=== PATIENT | male | born 1960 | race American Indian/Alaskan Native ===

== ENCOUNTER 2023-11-19 06:04 | Day surgery (SDC) | payer MEDICARE, MEDICAID ==
[2023-11-18 10:52] LABS: ALBUMIN 3.7 G/DL (3.4-5.0); ANION GAP 10 (8-16); BASOPHILS % (AUTO) 0.5 % (0-1); BLOOD UREA NITROGEN 13 MG/DL (7-18); BUN/CREATININE RATIO 12.9 (10.0-20.0); CALCIUM 8.9 MG/DL (8.5-10.1); CHLORIDE 105 MMOL/L (99-107); CREATININE 1.01 MG/DL (0.60-1.10); EOSINOPHILS # (AUTO) 0.1 X10'3 (0-0.9); EOSINOPHILS % (AUTO) 1.3 % (0-6); GLUCOSE 195 MG/DL (70-104); HEMATOCRIT 45.1 % (42.0-52.0); HEMOGLOBIN 15.4 g/dl (14.0-17.9); LYMPHOCYTES % (AUTO) 21.3 % (21-51); MEAN CORPUSCULAR HEMOGLOBIN 31.2 PG (27.0-31.0); MEAN CORPUSCULAR HGB CONC 34.2 g/dL (33.0-36.5); MEAN CORPUSCULAR VOLUME 91.2 FL (78-98); MEAN PLATELET VOLUME 8.6 FL (7.4-10.4); MONOCYTES # (AUTO) 0.7 X10'3 (0-0.9); MONOCYTES % (AUTO) 7.9 % (2-12); NEUTROPHILS # (AUTO) 6.4 X10'3 (1.8-7.7); PLATELET COUNT 173 X10'3 (140-440); POTASSIUM 3.7 MMOL/L (3.5-5.1); RED BLOOD COUNT 4.94 X10'6 (4.70-6.10); RED CELL DISTRIBUTION WIDTH 13.3 % (11.5-14.5); SODIUM 141 MMOL/L (135-145); TOTAL CARBON DIOXIDE 25.7 MMOL/L (24-32); WHITE BLOOD COUNT 9.3 X10'3 (4.5-11.0); eGFR 74 ML/MIN
[2023-11-18 10:55] LABS: APTT 29 SECONDS (22-32); INR 1.1 INR; PROTHROMBIN TIME 11.4 SECONDS (9.0-12.0)
[2023-11-19] VITALS (22 sets, daily range): BP systolic 99–156; BP diastolic 67–99; PULSE 57–135; RESP 14–24; TEMP 98.1; O2SAT 92–98
[~2023-11-19] VITALS: Ht 175.3 cm; Wt 93.6 kg
[~2023-11-19 06:04] MED LIST: ATEN100T PO; BENZ-38 PO; BUPR-230 PO; DOXE75CA3 PO; IPRA3AMP31 IH; ISOS30TA84 PO; LACT10SO3 PO; LEVO150T8 PO; LOSA25TA41 PO; MORP15TA PO; MORP30CA14 PO; MULT-1085 PO; OMEP40CA21 PO; ROSU20TA2 PO; TERA1CAP4 PO
[2023-11-19] MEDS ORDERED: OMEG1CAP46 PO (06:45)
[2023-11-19] MEDS ORDERED: RIVA20TA PO (06:45)
[2023-11-19] MEDS ORDERED: ROSU10TA2 PO (06:45)
[2023-11-19] MEDS ORDERED: NITR0.4T51 SL (06:45)
[2023-11-19] MEDS ORDERED: OMEP20CA16 PO (06:45)
[2023-11-19] MEDS ORDERED: FENO48TA10 PO (06:45)
[2023-11-19] MEDS: diphenhydrAMINE 25mg capsule PO PRN (06:58)
[2023-11-19] MEDS: LORazepam 0.5 MG tablet PO PRN (06:58)
[2023-11-19] MEDS: normal saline 1,000 ML IV SCH (06:59)
[2023-11-19] MEDS ORDERED: verapamil 2.5 mg/ml inj IV ONE ×3 (07:25→08:33)
[2023-11-19] MEDS ORDERED: LIDOcaine 1% (10mg/ml) 2ml vial ONE (07:25)
[2023-11-19] MEDS ORDERED: fentaNYL/PF 50MCG/1 ML 2ML syringe ONE (07:26)
[2023-11-19] MEDS ORDERED: iohexol 350MG/ML 100ml bottle IV ONE (07:26)
[2023-11-19] MEDS ORDERED: heparin 1,000unit/ml 10ml vial 10 ML ONE ×2 (07:26→09:58)
[2023-11-19] MEDS ORDERED: iohexol 350 MG/ML 50ML vial IV ONE (07:26)
[2023-11-19] MEDS ORDERED: midazolam 1 mg/ML 2ml injection ONE (07:26)
[2023-11-19] MEDS ORDERED: nitroGLYCERIN 500mcg/5mL D5W 5 ML IV ONE (07:27)
[2023-11-19] MEDS ORDERED: metoprolol tartrate 1mg/ml inj IV ONE (08:24)
[2023-11-19] MEDS ORDERED: heparin 25,000 UNIT/250ml bag 250 ML IV ONE (08:58)
[2023-11-19] MEDS ORDERED: heparin 1,000 UNITS/NS 500ml 500 ML ONE (09:36)
[2023-11-19] MEDS ORDERED: clopidogrel 300mg tablet ONE (09:50)
[2023-11-19 10:00] LABS: ISTAT HGB ART 12.6 g/dl (14.0-17.9); ISTAT Hct ART 37 %PCV (42-52); ISTAT O2 SATURATION ARTERIAL 91 % (95-98); ISTAT SOURCE ART
[2023-11-19] MEDS ORDERED: clopidogrel 300mg tablet PO ONE (10:35)
[2023-11-19] MEDS ORDERED: normal saline 1000ml 1,000 ML IV SCH ×2 (10:35)
[2023-11-19 10:41] LABS: ISTAT HGB MIX 12.6 g/dl (14.0-17.9); ISTAT Hct MIX 37 %PCV (42-52); ISTAT O2 SATURATION MIX VENOUS 64 % (60-80); ISTAT SOURCE VEN
[2023-11-19] MEDS: amiodarone 150mg/dext, iso-os 100 ML IV ONE (13:06)
[2023-11-19] MEDS: metoprolol tartrate 1mg/ml inj IV ONE (13:06)
[2023-11-19] MEDS ORDERED: metoprolol tartrate 1mg/ml inj IV PRN (13:10)
[2023-11-19] MEDS: metoprolol succinate 25mg (24-HOUR) SR. Tablet PO SCH (13:31)
[2023-11-19] MEDS ORDERED: morphine sulfate IR 15MG tablet PO ONE (13:40)
[2023-11-19] MEDS: morphine IR (immed. release) 30mg tablet PO ONE (14:07)
[2023-11-20] MEDS ORDERED: clopidogrel 75mg tablet PO SCH (08:00)
== END 2023-11-19 17:00 | disposition home or self-care (01) ==
LOC: SSTAY O 06:04
PROVIDERS: ATTEND Internal Medicine Cardiovascular Disease
DX: T82.855A Stenosis of coronary artery stent, initial encounter (principal); R94.39 Abnormal result of other cardiovascular function study; I45.10 Unspecified right bundle-branch block; I49.3 Ventricular premature depolarization; I25.119 Atherosclerotic heart disease of native coronary artery with unspecified angina pectoris; I10 Essential (primary) hypertension; E78.5 Hyperlipidemia, unspecified; I48.0 Paroxysmal atrial fibrillation; J44.9 Chronic obstructive pulmonary disease, unspecified; G47.30 Sleep apnea, unspecified; F32.A Depression, unspecified; E66.3 Overweight; I25.2 Old myocardial infarction; Z87.891 Personal history of nicotine dependence; Z79.891 Long term (current) use of opiate analgesic; Z79.899 Other long term (current) drug therapy; Z90.49 Acquired absence of other specified parts of digestive tract; Z95.5 Presence of coronary angioplasty implant and graft; Z98.890 Other specified postprocedural states; Z68.30 Body mass index [BMI] 30.0-30.9, adult; Y71.2 Prosthetic and other implants, materials and accessory cardiovascular devices associated with adverse incidents; Y92.89 Other specified places as the place of occurrence of the external cause
CPT/HCPCS: 36415; 80048; 82803; 85014; 85025; 85347; 85610; 85730; 92920; 92921; 92978; 93005; 93460; 93571; 99152; 99153; A4615; A6258; A6402; C1725; C1751; C1753; C1769; C1894; J0282; J1644; J2001; J2250; J3010; J3490; J7030; Q0163; Q9967; Z7610; 76937

== ENCOUNTER 2023-12-11 06:32 | Day surgery (SDC) | payer MEDICARE, MEDICAID ==
[2023-12-10 09:59] LABS: BASOPHILS # (AUTO) 0.1 X10'3 (0-0.2); BASOPHILS % (AUTO) 0.8 % (0-1); EOSINOPHILS # (AUTO) 0.2 X10'3 (0-0.9); EOSINOPHILS % (AUTO) 1.6 % (0-6); HEMATOCRIT 45.9 % (42.0-52.0); HEMOGLOBIN 15.4 g/dl (14.0-17.9); LYMPHOCYTES # (AUTO) 3.2 X10'3 (1.1-4.8); MEAN CORPUSCULAR HEMOGLOBIN 30.6 PG (27.0-31.0); MEAN CORPUSCULAR HGB CONC 33.4 g/dL (33.0-36.5); MEAN CORPUSCULAR VOLUME 91.5 FL (78-98); MEAN PLATELET VOLUME 8.3 FL (7.4-10.4); MONOCYTES # (AUTO) 1.1 X10'3 (0-0.9); MONOCYTES % (AUTO) 11.1 % (2-12); NEUTROPHILS # (AUTO) 5.7 X10'3 (1.8-7.7); NEUTROPHILS % (AUTO) 55.5 % (42-75); PLATELET COUNT 212 X10'3 (140-440); RED BLOOD COUNT 5.02 X10'6 (4.70-6.10); RED CELL DISTRIBUTION WIDTH 13.1 % (11.5-14.5); WHITE BLOOD COUNT 10.2 X10'3 (4.5-11.0)
[2023-12-10 10:08] LABS: ALBUMIN 3.8 G/DL (3.4-5.0); ANION GAP 8 (8-16); BLOOD UREA NITROGEN 15 MG/DL (7-18); BUN/CREATININE RATIO 12.1 (10.0-20.0); CHLORIDE 104 MMOL/L (99-107); CREATININE 1.24 MG/DL (0.60-1.10); GLUCOSE 137 MG/DL (70-104); POTASSIUM 3.9 MMOL/L (3.5-5.1); SODIUM 139 MMOL/L (135-145); TOTAL CARBON DIOXIDE 27.3 MMOL/L (24-32); eGFR 59 ML/MIN
[2023-12-10 10:11] LABS: INR 1.5 INR; PROTHROMBIN TIME 15.7 SECONDS (9.0-12.0)
[~2023-12-11] VITALS: Ht 170.2 cm; Wt 91.2 kg
[2023-12-11] VITALS (11 sets, daily range): BP systolic 95–128; BP diastolic 58–88; PULSE 74–88; RESP 14–18; TEMP 98.9; O2SAT 92–97
[~2023-12-11 06:32] MED LIST changes: +FENO48TA10 PO; -LACT10SO3 PO; -LOSA25TA41 PO; -MORP15TA PO; +NITR0.4T51 SL; +OMEG1CAP46 PO; +OMEP20CA16 PO; -OMEP40CA21 PO; +RIVA20TA PO; +ROSU10TA2 PO; -ROSU20TA2 PO
[2023-12-11] MEDS ORDERED: normal saline 1000ml 1,000 ML IV SCH (07:00)
[2023-12-11] MEDS ORDERED: atropine 0.1mg/ml 10ml syringe IV ONE (07:00)
[2023-12-11] MEDS ORDERED: LORazepam 0.5 MG tablet PO ONE (07:00)
[2023-12-11] MEDS ORDERED: TIOT4MIS8 (07:47)
[2023-12-11] MEDS ORDERED: LIDO1ADH78 TOP (07:47)
[2023-12-11] MEDS ORDERED: LEVA1.2544 IH (07:47)
[2023-12-11] MEDS ORDERED: CHOL500049 PO (07:47)
[2023-12-11] MEDS ORDERED: AMIO200T27 PO (07:47)
[2023-12-11] MEDS ORDERED: CLOP75TA34 PO (07:47)
[2023-12-11] MEDS ORDERED: LOSA25TA41 PO (07:47)
[2023-12-11] MEDS ORDERED: MELA10TA2 PO (07:47)
[2023-12-11] MEDS ORDERED: ASPI-1397 PO (07:47)
[2023-12-11] MEDS ORDERED: MORP30TA PO (07:47)
[2023-12-11] MEDS ORDERED: amiodarone 150mg/dext, iso-os 100 ML IV ONE (08:10)
[2023-12-11] MEDS: MIDAZolam 1mg/ml 10ml vial IV ONE (08:30)
[2023-12-11] MEDS: morphine 10mg/ml inj. IV ONE (08:30)
== END 2023-12-11 09:35 | disposition home or self-care (01) ==
LOC: SSTAY O 06:32
PROVIDERS: ATTEND Internal Medicine Cardiovascular Disease
DX: I48.0 Paroxysmal atrial fibrillation (principal); I45.10 Unspecified right bundle-branch block; I10 Essential (primary) hypertension; I25.119 Atherosclerotic heart disease of native coronary artery with unspecified angina pectoris; E78.5 Hyperlipidemia, unspecified; I48.92 Unspecified atrial flutter; J44.9 Chronic obstructive pulmonary disease, unspecified; E66.3 Overweight; F32.A Depression, unspecified; G47.30 Sleep apnea, unspecified; I25.2 Old myocardial infarction; F17.200 Nicotine dependence, unspecified, uncomplicated; Z79.01 Long term (current) use of anticoagulants; Z79.891 Long term (current) use of opiate analgesic; Z79.899 Other long term (current) drug therapy; Z90.49 Acquired absence of other specified parts of digestive tract; Z95.5 Presence of coronary angioplasty implant and graft; Z68.31 Body mass index [BMI] 31.0-31.9, adult
CPT/HCPCS: 36415; 80048; 85025; 85610; 92960; 93005; J2250; J2274; J7030; A4620

== ENCOUNTER 2024-07-05 09:42 | Inpatient (IN) | payer MEDICARE, MEDICAID, OTHER ==
[~2024-07-05] VITALS: Ht 170.2 cm; Wt 86.7 kg
[~2024-07-05 09:42] MED LIST changes: +AMIO200T27 PO; +ASPI-1397 PO; +CHOL500049 PO; +CLOP75TA34 PO; -FENO48TA10 PO; +LEVA1.2544 IH; +LIDO1ADH78 TOP; +LOSA25TA41 PO; +MELA10TA2 PO; +MORP30TA PO; +TIOT4MIS8
[2024-07-05] MEDS: ipratropium/albuterol 3ml nebule NEB ONE (10:04)
[2024-07-05 10:14] VITALS: PULSE 92; PULSE 93; RESP 16; RESP 22; O2SAT 96; O2SAT 98
[2024-07-05 10:34] LABS: BASOPHILS # (AUTO) 0.1 X10'3 (0-0.2); BASOPHILS % (AUTO) 0.9 % (0-1); EOSINOPHILS # (AUTO) 0.2 X10'3 (0-0.9); EOSINOPHILS % (AUTO) 2.6 % (0-6); HEMATOCRIT 36.2 % (42.0-52.0); HEMOGLOBIN 11.7 g/dl (14.0-17.9); LYMPHOCYTES # (AUTO) 1.5 X10'3 (1.1-4.8); LYMPHOCYTES % (AUTO) 22.8 % (21-51); MEAN CORPUSCULAR HEMOGLOBIN 30.6 PG (27.0-31.0); MEAN CORPUSCULAR HGB CONC 32.4 g/dL (33.0-36.5); MEAN CORPUSCULAR VOLUME 94.5 FL (78-98); MEAN PLATELET VOLUME 7.9 FL (7.4-10.4); MONOCYTES # (AUTO) 0.5 X10'3 (0-0.9); MONOCYTES % (AUTO) 8.1 % (2-12); NEUTROPHILS # (AUTO) 4.4 X10'3 (1.8-7.7); NEUTROPHILS % (AUTO) 65.6 % (42-75); PLATELET COUNT 183 X10'3 (140-440); RED BLOOD COUNT 3.83 X10'6 (4.70-6.10); RED CELL DISTRIBUTION WIDTH 14.3 % (11.5-14.5); WHITE BLOOD COUNT 6.6 X10'3 (4.5-11.0)
[2024-07-05 11:03] LABS: ALBUMIN 3.3 G/DL (3.4-5.0); ANION GAP 4 (8-16); BLOOD UREA NITROGEN 21 MG/DL (7-18); CALCIUM 8.3 MG/DL (8.5-10.1); CHLORIDE 102 MMOL/L (99-107); CREATININE 1.31 MG/DL (0.60-1.10); GLUCOSE 218 MG/DL (70-104); POTASSIUM 4.2 MMOL/L (3.5-5.1); PRO BRAIN NATRIURETIC PEPTIDE 1400 PG/ML (0-125); SODIUM 140 MMOL/L (135-145); TOTAL CARBON DIOXIDE 34.2 MMOL/L (24-32); eCRCL 53 ML/MIN; eGFR 55 ML/MIN
[2024-07-05 11:47] LABS: ALANINE AMINOTRANSFERASE 24 U/L (12-78); ALBUMIN 3.2 G/DL (3.4-5.0); ALBUMIN/GLOBULIN RATIO 0.8 (1.1-1.5); ALKALINE PHOSPHATASE 76 IU/L (46-116); ANION GAP 5 (8-16); ASPARTATE AMINO TRANSFERASE 21 U/L (10-37); BILIRUBIN,TOTAL 1.6 MG/DL (0.1-1.0); BLOOD UREA NITROGEN 21 MG/DL (7-18); BUN/CREATININE RATIO 16.9 (10.0-20.0); CALCIUM 8.3 MG/DL (8.5-10.1); CHLORIDE 102 MMOL/L (99-107); CREATININE 1.24 MG/DL (0.60-1.10); GLUCOSE 222 MG/DL (70-104); LIPASE 22 U/L (16-77); POTASSIUM 4.3 MMOL/L (3.5-5.1); SODIUM 138 MMOL/L (135-145); TOTAL CARBON DIOXIDE 31.3 MMOL/L (24-32); TOTAL PROTEIN 7.3 G/DL (6.4-8.2); eCRCL 56 ML/MIN; eGFR 59 ML/MIN
[2024-07-05] MEDS: furosemide 10 MG/1 ML 10ml inj IV ONE (11:55)
[2024-07-05 13:15] LABS: BILIRUBIN,URINE NEGATIVE (Neg); CLARITY,URINE CLEAR (Clear); COLOR,URINE YELLOW (Yellow); GLUCOSE, URINE NEGATIVE (Neg); KETONES,URINE NEGATIVE (Neg); LEUKOCYTE ESTERASE ,URINE NEGATIVE (Neg); NITRITES, URINE NEGATIVE (Neg); OCCULT BLOOD,URINE NEGATIVE (Neg); PH,URINE 5.5 (4.8-8.0); PROTEIN,URINE TRACE mg/dl (Neg)
[2024-07-05 13:20] LABS: BACTERIA,URINE NONE SEEN /HPF (Neg); MUCUS STRANDS FEW /LPF (Neg); RBC,URINE 0-2 /HPF (0-2); SQUAMOUS EPITHELIAL CELL,UR NONE SEEN /LPF (FEW); UA COLLECTION TYPE CLN CATCH MIDSTREAM; WBC,URINE 0-4 /HPF (0-4)
[2024-07-05 13:46] LABS: URINE AMPHETAMINE SCREEN NEGATIVE (Neg); URINE BARBITUATE SCREEN NEGATIVE (Neg); URINE BENZODIAZEPINES SCREEN NEGATIVE (Neg); URINE CANNABINOID SCREEN NEGATIVE (Neg); URINE COCAINE SCREEN NEGATIVE (Neg); URINE METHADONE SCREEN NEGATIVE (Neg); URINE OPIATE SCREEN POSITIVE (Neg); URINE PHENCYCLIDINE SCREEN NEGATIVE (Neg)
[2024-07-05] MEDS ORDERED: ipratropium/albuterol 3ml nebule IH PRN (14:10)
[2024-07-05] MEDS ORDERED: nitroGLYCERIN 0.4mg SUBLingual tab SL PRN (14:10)
[2024-07-05] MEDS: furosemide 10 MG/1 ML 10ml inj IV SCH (14:15)
[2024-07-05] MEDS ORDERED: albuterol 2.5 MG/3 ML nebule NEB PRN (14:30)
[2024-07-05] MEDS ORDERED: acetaminophen 325mg tablet PO PRN (14:30)
[2024-07-05] MEDS ORDERED: potassium Cl 20 mEq SR tablet PO PRN ×2 (14:30)
[2024-07-05] MEDS ORDERED: magnesium Cl slow-release 64mg tablet PO PRN (14:30)
[2024-07-05] MEDS ORDERED: morphine 2 MG/ML inj. syringe IV PRN (14:30)
[2024-07-05] MEDS ORDERED: HYDROcodone/acetaminophen 5mg/325mg tablet PO PRN (14:30)
[2024-07-05] MEDS ORDERED: ondansetron/PF 4mg/2ml inj IV PRN (14:30)
[2024-07-05] MEDS ORDERED: magnesium sulf-water 2g/50mL 50 ML IV PRN (14:30)
[2024-07-05] MEDS ORDERED: magnesium hydroxide 30ml (MOM) UD suspension PO PRN (14:30)
[2024-07-05] MEDS ORDERED: mag hydrox/Alum hydrox/simeth 30ml oral suspension PO PRN (14:30)
[2024-07-05 14:54] LABS: FREE T4 (FREE THYROXINE) 1.15 NG/DL (0.73-1.40); THYROID STIMULATING HORMONE 4.2 ulU/ml (0.34-4.50)
[2024-07-05] MEDS: ipratropium/albuterol 3ml nebule NEB SCH (15:00)
[2024-07-05] MEDS: aspirin 81mg, enteric-coated 1 TAB TABLET.DR PO SCH (15:04)
[2024-07-05] MEDS: clopidogrel 75mg tablet PO SCH (15:04)
[2024-07-05] MEDS: amiodarone 200mg tablet PO SCH (15:05)
[2024-07-05] MEDS: benzonatate 100mg capsule PO SCH (15:05)
[2024-07-05] MEDS: methylPREDNISolone sod succ/PF 40mg inj. IV SCH (15:06)
[2024-07-05] MEDS: CefTRIAXone/D5W-Rocephin 1gm 50 ML IV SCH (15:08)
[2024-07-05 15:12] LABS: APTT 31 SECONDS (22-32); INR 1.3 INR
[2024-07-05] MEDS: isosorbide mononitrate 30mg tab.SR.24H PO SCH (15:17)
[2024-07-05] MEDS: rivaroxaban 20mg tablet PO SCH (15:17)
[2024-07-05] MEDS: azithromycin/NS 500mg/250ml 250 ML IV SCH (15:19)
[2024-07-05 15:20] LABS: ABG BASE EXCESS 6.2 mmol/L (-2.0-3.0); ABG HCO3 34.6 mmol/L (21.0-28.0); ABG OXYGEN SATURATION 92.7 % (94.0-98.0); ABG PCO2 (T) 69.5 mmHg (35.0-48.0); ABG PH (T) 7.314 (7.350-7.450); ABG PO2 (T) 68.7 mmHg (83.0-108.0); ALLEN'S TEST POSITIVE; FCOHb 1.2 % (0.5-1.5); FHHb 7.2 % (0.0-5.0); FLOW 3 L/min; FMetHb 0.3 % (0.0-1.5); FO2Hb 91.3 % (94.0-98.0); MODE NASAL CANNULA; PATIENT TEMPERATURE 36.8; TOTAL HEMOGLOBIN 12.3 G/dl (13.5-17.5)
[2024-07-05 15:22] LABS: BILIRUBIN,URINE NEGATIVE (Neg); CLARITY,URINE CLEAR (Clear); COLOR,URINE YELLOW (Yellow); GLUCOSE, URINE NEGATIVE (Neg); KETONES,URINE NEGATIVE (Neg); LEUKOCYTE ESTERASE ,URINE NEGATIVE (Neg); NITRITES, URINE NEGATIVE (Neg); OCCULT BLOOD,URINE NEGATIVE (Neg); PH,URINE 5.5 (4.8-8.0); PROTEIN,URINE NEGATIVE (Neg); UROBILINOGEN,URINE 0.2 E.U/dL (0.2-1.0)
[2024-07-05 15:27] LABS: UA COLLECTION TYPE CLN CATCH MIDSTREAM
[2024-07-05 16:05] VITALS: PULSE 89; RESP 25; O2SAT 98
[2024-07-05 20:05] VITALS: PULSE 97; RESP 18; O2SAT 91
[2024-07-05 20:12] VITALS: PULSE 104; RESP 16
[2024-07-05] MEDS: atenolol 50mg tablet PO SCH (20:12)
[2024-07-05] MEDS: doxepin 25mg capsule PO SCH (20:12)
[2024-07-05] MEDS: guaiFENesin ER 600mg tablet PO SCH (20:13)
[2024-07-05] MEDS: docusate sod 100mg capsule PO SCH (20:13)
[2024-07-05] MEDS: buPROPion SR 150mg tablet PO SCH (20:13)
[2024-07-05] MEDS: HYDROcodone/acetaminophen 10/325mg tab PO PRN (20:33)
[2024-07-05] MEDS: MELATONIN 10 MG PO SCH (21:00)
[2024-07-05] MEDS: Terazosin 1mg capsule PO SCH (21:52)
[2024-07-05] MEDS: Melatonin 3mg tablet PO ONE (21:53)
[2024-07-05 23:09] VITALS: PULSE 88; RESP 18; O2SAT 95
[2024-07-05 23:13] VITALS: PULSE 90; RESP 18
[2024-07-06] VITALS (19 sets, daily range): BP systolic 112–140; BP diastolic 74–99; PULSE 85–106; RESP 15–24; TEMP 97.8–98.6; O2SAT 85–97
[2024-07-06 03:33] LABS: BASOPHILS % (AUTO) 0.1 % (0-1); EOSINOPHILS % (AUTO) 0 % (0-6); HEMATOCRIT 34.2 % (42.0-52.0); HEMOGLOBIN 11.3 g/dl (14.0-17.9); LYMPHOCYTES # (AUTO) 0.4 X10'3 (1.1-4.8); MEAN CORPUSCULAR HEMOGLOBIN 30.9 PG (27.0-31.0); MEAN CORPUSCULAR HGB CONC 33.1 g/dL (33.0-36.5); MEAN CORPUSCULAR VOLUME 93.3 FL (78-98); MEAN PLATELET VOLUME 7.9 FL (7.4-10.4); MONOCYTES # (AUTO) 0.1 X10'3 (0-0.9); MONOCYTES % (AUTO) 0.8 % (2-12); NEUTROPHILS # (AUTO) 6.2 X10'3 (1.8-7.7); NEUTROPHILS % (AUTO) 93.1 % (42-75); PLATELET COUNT 189 X10'3 (140-440); RED BLOOD COUNT 3.67 X10'6 (4.70-6.10); RED CELL DISTRIBUTION WIDTH 14.2 % (11.5-14.5); WHITE BLOOD COUNT 6.6 X10'3 (4.5-11.0)
[2024-07-06 04:06] LABS: ALANINE AMINOTRANSFERASE 30 U/L (12-78); ALBUMIN 3.2 G/DL (3.4-5.0); ALBUMIN/GLOBULIN RATIO 0.8 (1.1-1.5); ALKALINE PHOSPHATASE 77 IU/L (46-116); ANION GAP 3 (8-16); ASPARTATE AMINO TRANSFERASE 21 U/L (10-37); BILIRUBIN,TOTAL 1.5 MG/DL (0.1-1.0); BLOOD UREA NITROGEN 23 MG/DL (7-18); BUN/CREATININE RATIO 20.5 (10.0-20.0); CALCIUM 8.5 MG/DL (8.5-10.1); CHLORIDE 100 MMOL/L (99-107); CHOL/HDL RATIO 1.9 (0.00-4.99); CHOLESTEROL 90 MG/DL (0-200); CREATININE 1.12 MG/DL (0.60-1.10); GLUCOSE 170 MG/DL (70-104); HDL CHOLESTEROL 48 MG/DL (35-60); LDL CHOLESTEROL 40 MG/DL (50-100); MAGNESIUM 1.9 MG/DL (1.5-2.4); POTASSIUM 4.4 MMOL/L (3.5-5.1); SODIUM 140 MMOL/L (135-145); TOTAL CARBON DIOXIDE 36.8 MMOL/L (24-32); TOTAL PROTEIN 7.2 G/DL (6.4-8.2); TRIGLYCERIDES 31 MG/DL (20-135); eCRCL 61 ML/MIN; eGFR 66 ML/MIN
[2024-07-06] MEDS ORDERED: benzonatate 100mg capsule PO SCH (08:00)
[2024-07-06] MEDS: atorvastatin 20mg tablet PO SCH (09:15)
[2024-07-06] MEDS: levoTHYROXINE 75mcg tablet PO SCH (09:16)
[2024-07-06] MEDS: pantoprazole 40mg Tablet.DR PO SCH (09:16)
[2024-07-06] MEDS: losartan 25mg tablet PO SCH (09:17)
[2024-07-06] MEDS ORDERED: normal saline 500ml IV soln 500 ML IV PRN (14:55)
[2024-07-06] MEDS: morphine ER 30mg tablet PO PRN (15:27)
[2024-07-07] VITALS (10 sets, daily range): BP systolic 100–135; BP diastolic 64–87; PULSE 70–96; RESP 16–20; TEMP 96.3; O2SAT 92–96
[2024-07-07 06:46] LABS: BASOPHILS % (AUTO) 0.1 % (0-1); EOSINOPHILS % (AUTO) 0 % (0-6); HEMATOCRIT 38.3 % (42.0-52.0); HEMOGLOBIN 12.3 g/dl (14.0-17.9); LYMPHOCYTES # (AUTO) 0.6 X10'3 (1.1-4.8); MEAN CORPUSCULAR HEMOGLOBIN 30.1 PG (27.0-31.0); MEAN CORPUSCULAR HGB CONC 32.1 g/dL (33.0-36.5); MEAN CORPUSCULAR VOLUME 93.8 FL (78-98); MEAN PLATELET VOLUME 8.1 FL (7.4-10.4); MONOCYTES # (AUTO) 0.5 X10'3 (0-0.9); NEUTROPHILS # (AUTO) 14.2 X10'3 (1.8-7.7); NEUTROPHILS % (AUTO) 92.9 % (42-75); PLATELET COUNT 256 X10'3 (140-440); RED BLOOD COUNT 4.09 X10'6 (4.70-6.10); WHITE BLOOD COUNT 15.4 X10'3 (4.5-11.0)
[2024-07-07 07:05] LABS: ALANINE AMINOTRANSFERASE 28 U/L (12-78); ALBUMIN 3.4 G/DL (3.4-5.0); ALBUMIN/GLOBULIN RATIO 0.8 (1.1-1.5); ALKALINE PHOSPHATASE 86 IU/L (46-116); ANION GAP 4 (8-16); ASPARTATE AMINO TRANSFERASE 17 U/L (10-37); BILIRUBIN,TOTAL 1.1 MG/DL (0.1-1.0); BLOOD UREA NITROGEN 28 MG/DL (7-18); CALCIUM 8.8 MG/DL (8.5-10.1); CHLORIDE 97 MMOL/L (99-107); CREATININE 1.22 MG/DL (0.60-1.10); GLUCOSE 210 MG/DL (70-104); POTASSIUM 5.1 MMOL/L (3.5-5.1); SODIUM 136 MMOL/L (135-145); TOTAL CARBON DIOXIDE 35.2 MMOL/L (24-32); TOTAL PROTEIN 7.8 G/DL (6.4-8.2); eCRCL 56 ML/MIN; eGFR 60 ML/MIN
[2024-07-07] MEDS: morphine ER 15mg tablet PO PRN (09:15)
[2024-07-07] MEDS ORDERED: Melatonin 3mg tablet PO SCH (11:41)
[2024-07-07] MEDS ORDERED: AZIT500T PO (11:51)
[2024-07-07] MEDS ORDERED: FURO-150 PO (11:51)
[2024-07-07] MEDS ORDERED: PRED10TA23 PO (11:51)
== END 2024-07-07 16:22 | disposition home or self-care (01) | DRG 291 ==
LOC: ER 09:43 → ED HOLD 11:24 → ORTHO 4S 07-06 07:18
PROVIDERS: ADMIT Internal Medicine; ATTEND Internal Medicine
PROC: 5A09357 Assistance with Respiratory Ventilation, Less than 24 Consecutive Hours, Continuous Positive Airway Pressure (ICD-10-PCS; principal; 2024-07-06)
DX: I11.0 Hypertensive heart disease with heart failure (principal); I50.23 Acute on chronic systolic (congestive) heart failure; J96.01 Acute respiratory failure with hypoxia; J44.1 Chronic obstructive pulmonary disease with (acute) exacerbation; J44.0 Chronic obstructive pulmonary disease with (acute) lower respiratory infection; E87.20 Acidosis, unspecified; Z20.822 Contact with and (suspected) exposure to COVID-19; I48.91 Unspecified atrial fibrillation; E78.00 Pure hypercholesterolemia, unspecified; F32.A Depression, unspecified; I25.10 Atherosclerotic heart disease of native coronary artery without angina pectoris; F41.9 Anxiety disorder, unspecified; G89.29 Other chronic pain; K21.9 Gastro-esophageal reflux disease without esophagitis; M54.9 Dorsalgia, unspecified; J20.9 Acute bronchitis, unspecified; N40.0 Benign prostatic hyperplasia without lower urinary tract symptoms; E03.9 Hypothyroidism, unspecified; Z88.1 Allergy status to other antibiotic agents; Z79.82 Long term (current) use of aspirin; Z88.8 Allergy status to other drugs, medicaments and biological substances; J40 Bronchitis, not specified as acute or chronic
CPT/HCPCS: 36415; 36600; 71045; 80048; 80053; 80061; 80305; 81001; 81003; 82803; 83605; 83690; 83735; 83880; 84145; 84439; 84443; 84484; 85018; 85025; 85610; 85651; 85730; 87040; 87081; 87502; 87503; 87811; 93005; 93306; 94640; 94660; 94760; 97116; 97162; 97530; 99291; A4615; A4620; A6258; G0378; J0456; J0696; J1940; J2919; J7040

== ENCOUNTER 2024-08-07 14:06 | Inpatient (IN) | payer OTHER, MEDICARE, MEDICAID ==
[~2024-08-07] VITALS: Ht 171.4 cm; Wt 101.0 kg
[2024-08-07] VITALS (12 sets, daily range): BP systolic 102–140; BP diastolic 67–83; PULSE 67–90; RESP 10–20; TEMP 97.3–97.8; O2SAT 98–100
[~2024-08-07 14:06] MED LIST changes: +FURO-150 PO; -LIDO1ADH78 TOP; -MORP30TA PO; +PRED10TA23 PO
[2024-08-07 15:22] LABS: BASOPHILS % (AUTO) 0.8 % (0-1); EOSINOPHILS # (AUTO) 0.1 X10'3 (0-0.9); EOSINOPHILS % (AUTO) 1.6 % (0-6); LYMPHOCYTES # (AUTO) 1.9 X10'3 (1.1-4.8); LYMPHOCYTES % (AUTO) 31.5 % (21-51); MEAN CORPUSCULAR HGB CONC 29.4 g/dL (33.0-36.5); MEAN CORPUSCULAR VOLUME 81.5 FL (78-98); MEAN PLATELET VOLUME 7.2 FL (7.4-10.4); MONOCYTES # (AUTO) 0.6 X10'3 (0-0.9); MONOCYTES % (AUTO) 10.5 % (2-12); NEUTROPHILS # (AUTO) 3.3 X10'3 (1.8-7.7); NEUTROPHILS % (AUTO) 55.6 % (42-75); PLATELET COUNT 209 X10'3 (140-440); RED BLOOD COUNT 2.21 X10'6 (4.70-6.10); RED CELL DISTRIBUTION WIDTH 17.5 % (11.5-14.5)
[2024-08-07 15:28] LABS: HEMOGLOBIN 5.3 g/dl (14.0-17.9)
[2024-08-07 15:31] LABS: ALBUMIN 2.9 G/DL (3.4-5.0); ALBUMIN/GLOBULIN RATIO 0.8 (1.1-1.5); ANION GAP 6 (8-16); ASPARTATE AMINO TRANSFERASE 15 U/L (10-37); BLOOD UREA NITROGEN 24 MG/DL (7-18); BUN/CREATININE RATIO 10.5 (10.0-20.0); CALCIUM 8.4 MG/DL (8.5-10.1); CHLORIDE 101 MMOL/L (99-107); CREATININE 2.28 MG/DL (0.60-1.10); GLUCOSE 128 MG/DL (70-104); POTASSIUM 3.4 MMOL/L (3.5-5.1); SODIUM 138 MMOL/L (135-145); TOTAL CARBON DIOXIDE 31.3 MMOL/L (24-32); TOTAL PROTEIN 6.7 G/DL (6.4-8.2); eCRCL 30 ML/MIN; eGFR 29 ML/MIN
[2024-08-07 15:32] LABS: ALANINE AMINOTRANSFERASE 54 U/L (12-78); ALKALINE PHOSPHATASE 92 IU/L (46-116)
[2024-08-07 15:41] LABS: PRO BRAIN NATRIURETIC PEPTIDE 807 PG/ML (0-125)
[2024-08-07 16:21] LABS: PLATELET ESTIMATE NORMAL
[2024-08-07 16:22] LABS: ANISOCYTOSIS 1+; HYPOCHROMASIA 1+; POLYCHROMASIA 2+; TARGET CELLS FEW; TEAR DROP CELLS FEW
[2024-08-07 16:40] LABS: APTT 29 SECONDS (22-32); INR 1.3 INR; PROTHROMBIN TIME 13.4 SECONDS (9.0-12.0)
[2024-08-07] MEDS ORDERED: magnesium sulf-water 4G/100mL 100 ML IV PRN (17:15)
[2024-08-07] MEDS ORDERED: magnesium sulf-water 2g/50mL 50 ML IV PRN (17:15)
[2024-08-07] MEDS ORDERED: magnesium Cl slow-release 64mg tablet PO PRN (17:15)
[2024-08-07] MEDS ORDERED: potassium Cl 40MEQ/1/2NS 520ml 520 ML IV PRN (17:15)
[2024-08-07] MEDS ORDERED: potassium Cl 20 mEq SR tablet PO PRN (17:15)
[2024-08-07] MEDS ORDERED: ondansetron/PF 4mg/2ml inj IV PRN (17:15)
[2024-08-07] MEDS: furosemide 20 MG/2 ML vial IV ONE (17:34)
[2024-08-07] MEDS ORDERED: ipratropium/albuterol 3ml nebule NEB PRN (17:55)
[2024-08-07 18:17] LABS: FERRITIN 36 NG/ML (26-388)
[2024-08-07 19:06] LABS: % IRON SATURATION 3 % (11-46); IRON 16 UG/DL (53-167); TOTAL IRON BINDING CAPACITY 541 UG/DL (259-388)
[2024-08-07] MEDS ORDERED: MORPHINE SULFATE 30 MG PO PRN (19:20)
[2024-08-07] MEDS ORDERED: doxepin 25mg capsule PO SCH (21:00)
[2024-08-07] MEDS: docusate sod 100mg capsule PO SCH (22:05)
[2024-08-07] MEDS: furosemide 20 MG/2 ML vial IV SCH (22:05)
[2024-08-07] MEDS: Melatonin 3mg tablet PO SCH (22:06)
[2024-08-07] MEDS: potassium Cl 20 mEq SR tablet PO PRN (22:06)
[2024-08-07] MEDS: Terazosin 1mg capsule PO SCH (22:07)
[2024-08-07] MEDS: buPROPion SR 150mg tablet PO SCH (22:07)
[2024-08-07] MEDS: K and/or MAG REPLACEMENT MC SCH (22:08)
[2024-08-07] MEDS: doxepin 25mg capsule PO ONE (22:35)
[2024-08-08] VITALS (30 sets, daily range): BP systolic 80–145; BP diastolic 51–91; PULSE 76–153; RESP 1–34; TEMP 97.5–99.9; O2SAT 87–98
[2024-08-08 04:35] LABS: BASOPHILS % (AUTO) 0.5 % (0-1); EOSINOPHILS # (AUTO) 0.1 X10'3 (0-0.9); EOSINOPHILS % (AUTO) 1.3 % (0-6); LYMPHOCYTES # (AUTO) 1.4 X10'3 (1.1-4.8); LYMPHOCYTES % (AUTO) 25.2 % (21-51); MEAN CORPUSCULAR HGB CONC 29.5 g/dL (33.0-36.5); MEAN CORPUSCULAR VOLUME 81.4 FL (78-98); MEAN PLATELET VOLUME 7.1 FL (7.4-10.4); MONOCYTES # (AUTO) 0.5 X10'3 (0-0.9); NEUTROPHILS # (AUTO) 3.4 X10'3 (1.8-7.7); PLATELET COUNT 227 X10'3 (140-440); RED BLOOD COUNT 2.65 X10'6 (4.70-6.10); RED CELL DISTRIBUTION WIDTH 17.4 % (11.5-14.5); WHITE BLOOD COUNT 5.4 X10'3 (4.5-11.0)
[2024-08-08 04:54] LABS: HEMATOCRIT 21.6 % (42.0-52.0); HEMOGLOBIN 6.4 g/dl (14.0-17.9)
[2024-08-08 04:58] LABS: ALBUMIN 2.8 G/DL (3.4-5.0); ANION GAP 7 (8-16); BLOOD UREA NITROGEN 21 MG/DL (7-18); BUN/CREATININE RATIO 11.2 (10.0-20.0); CALCIUM 8.7 MG/DL (8.5-10.1); CHLORIDE 101 MMOL/L (99-107); CREATININE 1.88 MG/DL (0.60-1.10); GLUCOSE 109 MG/DL (70-104); MAGNESIUM 1.8 MG/DL (1.5-2.4); POTASSIUM 3.1 MMOL/L (3.5-5.1); SODIUM 140 MMOL/L (135-145); TOTAL CARBON DIOXIDE 31.6 MMOL/L (24-32); eCRCL 37 ML/MIN; eGFR 36 ML/MIN
[2024-08-08 06:35] LABS: OCCULT BLOOD STOOL NEGATIVE (Neg)
[2024-08-08] MEDS: acetaminophen 325mg tablet PO PRN (06:53)
[2024-08-08] MEDS: amiodarone 200mg tablet PO SCH (06:53)
[2024-08-08] MEDS: losartan 25mg tablet PO SCH (07:56)
[2024-08-08] MEDS: atorvastatin 20mg tablet PO SCH (07:57)
[2024-08-08] MEDS: levoTHYROXINE 75mcg tablet PO SCH (07:57)
[2024-08-08] MEDS: LORazepam 2 mg/ml vial IV ONE (08:18)
[2024-08-08] MEDS: furosemide 20 MG/2 ML vial IV SCH (08:18)
[2024-08-08] MEDS: pantoprazole 40 MG vial IV SCH (08:18)
[2024-08-08] MEDS: isosorbide mononitrate 30mg tab.SR.24H PO SCH (08:19)
[2024-08-08] MEDS ORDERED: haloperidol 5mg tablet PO PRN (08:40)
[2024-08-08] MEDS ORDERED: haloperidol lactate 5mg/ml inj IM PRN (08:40)
[2024-08-08] MEDS ORDERED: LORazepam 2 mg/ml vial IV PRN ×2 (08:40→18:35)
[2024-08-08 08:58] LABS: ABG BASE EXCESS 2.5 mmol/L (-2.0-3.0); ABG HCO3 27.6 mmol/L (21.0-28.0); ABG OXYGEN SATURATION 91.6 % (94.0-98.0); ABG PCO2 (T) 45.5 mmHg (35.0-48.0); ABG PH (T) 7.402 (7.350-7.450); ABG PO2 (T) 60.7 mmHg (83.0-108.0); ALLEN'S TEST POSITIVE; FCOHb 1.8 % (0.5-1.5); FHHb 8.2 % (0.0-5.0); FMetHb 0.3 % (0.0-1.5); FO2Hb 89.7 % (94.0-98.0); MODE MASK - BIPAP; PATIENT TEMPERATURE 37.1; RESPIRATORY RATE 10 b/min; TIDAL VOLUME 812 mL; TOTAL HEMOGLOBIN 8.8 G/dl (13.5-17.5)
[2024-08-08] MEDS: methylPREDNISolone sod succ 125mg/2ml vial IV ONE (08:59)
[2024-08-08] MEDS: amiodarone/D5 360MG/200ML BAG 200 ML IV SCH (09:05)
[2024-08-08] MEDS: amiodarone 150mg/dext, iso-os 100 ML IV ONE (09:05)
[2024-08-08 09:23] LABS: HEMATOCRIT 25.9 % (42.0-52.0); MEAN CORPUSCULAR HEMOGLOBIN 25.6 PG (27.0-31.0); MEAN CORPUSCULAR VOLUME 82.7 FL (78-98); MEAN PLATELET VOLUME 7.3 FL (7.4-10.4); PLATELET COUNT 226 X10'3 (140-440); RED BLOOD COUNT 3.14 X10'6 (4.70-6.10); RED CELL DISTRIBUTION WIDTH 17.4 % (11.5-14.5); WHITE BLOOD COUNT 10.2 X10'3 (4.5-11.0)
[2024-08-08] MEDS: ipratropium/albuterol 3ml nebule NEB SCH (12:24)
[2024-08-08] MEDS: methylPREDNISolone sod succ 125mg/2ml vial IV SCH (16:12)
[2024-08-08] MEDS: piperacillin/tazo 3.375gm/50ml 50 ML IV SCH (16:12)
[2024-08-08] MEDS: furosemide 40mg/4ml inj IV SCH (20:00)
[2024-08-08] MEDS: azithromycin/NS 500mg/250ml 250 ML IV SCH (20:46)
[2024-08-08] MEDS: doxepin 25mg capsule PO SCH (20:54)
[2024-08-08] MEDS ORDERED: thiamine 100mg/ml 2ml inj. IV SCH (21:00)
[2024-08-09] VITALS (26 sets, daily range): BP systolic 99–133; BP diastolic 65–89; PULSE 74–107; RESP 0–24; TEMP 97.9–98.6; O2SAT 92–99
[2024-08-09 07:25] LABS: BASOPHILS % (AUTO) 0.1 % (0-1); EOSINOPHILS % (AUTO) 0 % (0-6); LYMPHOCYTES # (AUTO) 0.8 X10'3 (1.1-4.8); LYMPHOCYTES % (AUTO) 6.4 % (21-51); MEAN CORPUSCULAR HEMOGLOBIN 25.3 PG (27.0-31.0); MEAN CORPUSCULAR HGB CONC 30.4 g/dL (33.0-36.5); MEAN CORPUSCULAR VOLUME 83.1 FL (78-98); MEAN PLATELET VOLUME 7.7 FL (7.4-10.4); MONOCYTES # (AUTO) 0.4 X10'3 (0-0.9); MONOCYTES % (AUTO) 3.5 % (2-12); NEUTROPHILS # (AUTO) 11.1 X10'3 (1.8-7.7); PLATELET COUNT 205 X10'3 (140-440); RED BLOOD COUNT 2.64 X10'6 (4.70-6.10); RED CELL DISTRIBUTION WIDTH 17.7 % (11.5-14.5); WHITE BLOOD COUNT 12.4 X10'3 (4.5-11.0)
[2024-08-09 07:30] LABS: HEMOGLOBIN 6.7 g/dl (14.0-17.9)
[2024-08-09 07:31] LABS: HEMATOCRIT 21.9 % (42.0-52.0)
[2024-08-09] MEDS ORDERED: folic acid 1mg/0.2ml inj IV SCH (08:00)
[2024-08-09] MEDS ORDERED: multivitamins, therapeutics tablet PO SCH (08:00)
[2024-08-09 08:15] LABS: ALBUMIN 2.5 G/DL (3.4-5.0); ANION GAP 10 (8-16); BLOOD UREA NITROGEN 24 MG/DL (7-18); BUN/CREATININE RATIO 15.1 (10.0-20.0); CALCIUM 8.6 MG/DL (8.5-10.1); CHLORIDE 103 MMOL/L (99-107); CREATININE 1.59 MG/DL (0.60-1.10); GLUCOSE 204 MG/DL (70-104); POTASSIUM 3.6 MMOL/L (3.5-5.1); SODIUM 141 MMOL/L (135-145); TOTAL CARBON DIOXIDE 28.2 MMOL/L (24-32); eCRCL 44 ML/MIN; eGFR 44 ML/MIN
[2024-08-09] MEDS ORDERED: iron dextran complex inj. 25 MG in normal saline 50ml IV soln 49.5 ML IV ONE (10:25)
[2024-08-09] MEDS ORDERED: LIDOcaine 2% Viscous 15ml cup ONE (15:50)
[2024-08-09] MEDS ORDERED: MIDAZolam 1 MG/ML 5ML VIAL ONE (15:53)
[2024-08-09] MEDS ORDERED: fentaNYL/PF 50MCG/1 ML 2ML syringe ONE (15:53)
[2024-08-09] MEDS ORDERED: PEG 3350/Na sulf,bicarb,Cl/KCl oral sol 4 liter bottle PO ONE (16:40)
[2024-08-09] MEDS ORDERED: sennosides/docusate sodium tablet PO SCH (20:00)
[2024-08-09] MEDS ORDERED: docusate sod 100mg capsule PO SCH (20:00)
[2024-08-09] MEDS: sennosides/docusate sodium tablet PO SCH (21:29)
[2024-08-09] MEDS: iron dextran complex inj. 25 MG in normal saline 50ml IV soln 100 ML IV ONE (21:38)
[2024-08-09] MEDS: PEG 3350/Na sulf,bicarb,Cl/KCl oral sol 4 liter bottle PO ONE (21:39)
[2024-08-09] MEDS: iron sucrose complex injection 200 MG in normal saline 100ml IV soln 100 ML IV SCH (22:06)
[2024-08-10] VITALS (26 sets, daily range): BP systolic 119–151; BP diastolic 58–93; PULSE 81–113; RESP 15–30; TEMP 97.5–98.8; O2SAT 81–99
[2024-08-10 07:33] LABS: BASOPHILS % (AUTO) 0.1 % (0-1); EOSINOPHILS % (AUTO) 0 % (0-6); HEMATOCRIT 26.5 % (42.0-52.0); LYMPHOCYTES # (AUTO) 0.5 X10'3 (1.1-4.8); LYMPHOCYTES % (AUTO) 4.7 % (21-51); MEAN CORPUSCULAR HEMOGLOBIN 25.6 PG (27.0-31.0); MEAN CORPUSCULAR HGB CONC 30.3 g/dL (33.0-36.5); MEAN CORPUSCULAR VOLUME 84.6 FL (78-98); MEAN PLATELET VOLUME 7.9 FL (7.4-10.4); MONOCYTES # (AUTO) 0.3 X10'3 (0-0.9); NEUTROPHILS # (AUTO) 10.6 X10'3 (1.8-7.7); NEUTROPHILS % (AUTO) 92.2 % (42-75); PLATELET COUNT 203 X10'3 (140-440); RED BLOOD COUNT 3.14 X10'6 (4.70-6.10); RED CELL DISTRIBUTION WIDTH 17.6 % (11.5-14.5); WHITE BLOOD COUNT 11.5 X10'3 (4.5-11.0)
[2024-08-10 07:55] LABS: ALBUMIN 2.8 G/DL (3.4-5.0); ANION GAP 10 (8-16); BLOOD UREA NITROGEN 27 MG/DL (7-18); BUN/CREATININE RATIO 18.6 (10.0-20.0); CALCIUM 8.4 MG/DL (8.5-10.1); CHLORIDE 99 MMOL/L (99-107); CREATININE 1.45 MG/DL (0.60-1.10); GLUCOSE 279 MG/DL (70-104); MAGNESIUM 2.1 MG/DL (1.5-2.4); POTASSIUM 3.6 MMOL/L (3.5-5.1); SODIUM 139 MMOL/L (135-145); THYROID STIMULATING HORMONE 1.46 ulU/ml (0.34-4.50); TOTAL CARBON DIOXIDE 30.1 MMOL/L (24-32); eCRCL 48 ML/MIN; eGFR 49 ML/MIN
[2024-08-10] MEDS ORDERED: LORazepam 2 mg/ml vial IV PRN (08:40)
[2024-08-10] MEDS ORDERED: LORazepam 1 MG tablet PO PRN (08:40)
[2024-08-10] MEDS: amiodarone 200mg tablet PO SCH (11:45)
[2024-08-10] MEDS ORDERED: propofol inj 20 ML IV ONE (14:11)
[2024-08-10] MEDS: methylPREDNISolone sod succ/PF 40mg inj. IV SCH (20:13)
[2024-08-10] MEDS: atenolol 50mg tablet PO SCH (20:20)
[2024-08-11] VITALS (11 sets, daily range): BP systolic 110–141; BP diastolic 71–92; PULSE 77–100; RESP 14–25; TEMP 97.1–98.7; O2SAT 94–98
[2024-08-11 07:02] LABS: BASOPHILS % (AUTO) 0.1 % (0-1); EOSINOPHILS % (AUTO) 0 % (0-6); HEMATOCRIT 26.2 % (42.0-52.0); HEMOGLOBIN 8.3 g/dl (14.0-17.9); LYMPHOCYTES # (AUTO) 0.9 X10'3 (1.1-4.8); MEAN CORPUSCULAR HEMOGLOBIN 26.7 PG (27.0-31.0); MEAN CORPUSCULAR HGB CONC 31.7 g/dL (33.0-36.5); MEAN CORPUSCULAR VOLUME 84.2 FL (78-98); MONOCYTES # (AUTO) 0.7 X10'3 (0-0.9); NEUTROPHILS # (AUTO) 9.4 X10'3 (1.8-7.7); NEUTROPHILS % (AUTO) 85.9 % (42-75); PLATELET COUNT 197 X10'3 (140-440); RED BLOOD COUNT 3.11 X10'6 (4.70-6.10); RED CELL DISTRIBUTION WIDTH 17.2 % (11.5-14.5)
[2024-08-11 07:33] LABS: ALBUMIN 2.6 G/DL (3.4-5.0); ANION GAP 7 (8-16); BLOOD UREA NITROGEN 23 MG/DL (7-18); BUN/CREATININE RATIO 16.7 (10.0-20.0); CALCIUM 8.4 MG/DL (8.5-10.1); CHLORIDE 101 MMOL/L (99-107); CREATININE 1.38 MG/DL (0.60-1.10); GLUCOSE 239 MG/DL (70-104); MAGNESIUM 2.2 MG/DL (1.5-2.4); POTASSIUM 3.6 MMOL/L (3.5-5.1); SODIUM 142 MMOL/L (135-145); TOTAL CARBON DIOXIDE 34.2 MMOL/L (24-32); eCRCL 51 ML/MIN; eGFR 52 ML/MIN
[2024-08-11] MEDS ORDERED: APIX5TAB3 PO ×2 (08:01→16:09)
[2024-08-11] MEDS ORDERED: PRED20TA PO ×2 (08:12→16:09)
[2024-08-11] MEDS ORDERED: SPIR25TA5 PO (15:54)
[2024-08-11] MEDS ORDERED: LEVO750T68 PO (15:54)
[2024-08-12] MEDS ORDERED: folic acid 1mg tablet PO SCH (08:00)
[2024-08-12] MEDS ORDERED: thiamine 100mg tablet PO SCH (08:00)
[2024-08-12] MEDS ORDERED: LORazepam 2 mg/ml vial IV PRN (08:40)
[2024-08-12] MEDS ORDERED: LORazepam 1 MG tablet PO PRN (08:40)
== END 2024-08-11 17:17 | disposition home or self-care (01) | DRG 291 ==
LOC: ER 14:06 → PCU 3S 17:22
PROVIDERS: ADMIT Family Medicine; ATTEND Family Medicine
PROC: 30233N1 Transfusion of Nonautologous Red Blood Cells into Peripheral Vein, Percutaneous Approach (ICD-10-PCS; principal; 2024-08-07)
PROC: 5A09357 Assistance with Respiratory Ventilation, Less than 24 Consecutive Hours, Continuous Positive Airway Pressure (ICD-10-PCS; 2024-08-08)
PROC: 5A09357 Assistance with Respiratory Ventilation, Less than 24 Consecutive Hours, Continuous Positive Airway Pressure (ICD-10-PCS; 2024-08-09)
PROC: 0DJ08ZZ Inspection of Upper Intestinal Tract, Via Natural or Artificial Opening Endoscopic (ICD-10-PCS; 2024-08-09)
PROC: 5A09357 Assistance with Respiratory Ventilation, Less than 24 Consecutive Hours, Continuous Positive Airway Pressure (ICD-10-PCS; 2024-08-10)
PROC: 0DJD8ZZ Inspection of Lower Intestinal Tract, Via Natural or Artificial Opening Endoscopic (ICD-10-PCS; 2024-08-10)
DX: I13.0 Hypertensive heart and chronic kidney disease with heart failure and stage 1 through stage 4 chronic kidney disease, or unspecified chronic kidney disease (principal); I50.33 Acute on chronic diastolic (congestive) heart failure; J18.9 Pneumonia, unspecified organism; J96.01 Acute respiratory failure with hypoxia; N17.9 Acute kidney failure, unspecified; J44.0 Chronic obstructive pulmonary disease with (acute) lower respiratory infection; J44.1 Chronic obstructive pulmonary disease with (acute) exacerbation; K92.2 Gastrointestinal hemorrhage, unspecified; D50.0 Iron deficiency anemia secondary to blood loss (chronic); Z20.822 Contact with and (suspected) exposure to COVID-19; K64.9 Unspecified hemorrhoids; N18.9 Chronic kidney disease, unspecified; E78.00 Pure hypercholesterolemia, unspecified; I25.10 Atherosclerotic heart disease of native coronary artery without angina pectoris; I48.0 Paroxysmal atrial fibrillation; F32.A Depression, unspecified; F41.9 Anxiety disorder, unspecified; Z66 Do not resuscitate; G47.33 Obstructive sleep apnea (adult) (pediatric); G89.29 Other chronic pain; K21.9 Gastro-esophageal reflux disease without esophagitis; M54.9 Dorsalgia, unspecified; E87.6 Hypokalemia; Z88.1 Allergy status to other antibiotic agents; Z98.61 Coronary angioplasty status; Z79.82 Long term (current) use of aspirin; Z79.899 Other long term (current) drug therapy
CPT/HCPCS: 36415; 36430; 36600; 43235; 45378; 71045; 80048; 80053; 82272; 82728; 82803; 83540; 83550; 83735; 83880; 84145; 84443; 84466; 84484; 85008; 85018; 85025; 85027; 85610; 85730; 86870; 86885; 86900; 86901; 86922; 87081; 87502; 87503; 87811; 93005; 94640; 94660; 94760; 97116; 97161; 97530; 99152; 99291; A4620; A6212; G0378; J0282; J0456; J1750; J1756; J1940; J2060; J2250; J2470; J2543; J2704; J2919; J3010; J3490; J7030; J7040; P9016

== ENCOUNTER 2024-08-26 06:30 | Day surgery (SDC) | payer MEDICARE, MEDICAID ==
[2024-08-24 09:47] LABS: BASOPHILS # (AUTO) 0.1 X10'3 (0-0.2); BASOPHILS % (AUTO) 0.9 % (0-1); EOSINOPHILS # (AUTO) 0.1 X10'3 (0-0.9); EOSINOPHILS % (AUTO) 1.3 % (0-6); HEMATOCRIT 34.1 % (42.0-52.0); HEMOGLOBIN 10.8 g/dl (14.0-17.9); LYMPHOCYTES # (AUTO) 2.1 X10'3 (1.1-4.8); LYMPHOCYTES % (AUTO) 28.9 % (21-51); MEAN CORPUSCULAR HEMOGLOBIN 27.1 PG (27.0-31.0); MEAN CORPUSCULAR HGB CONC 31.6 g/dL (33.0-36.5); MEAN CORPUSCULAR VOLUME 85.7 FL (78-98); MEAN PLATELET VOLUME 7.4 FL (7.4-10.4); MONOCYTES % (AUTO) 12.9 % (2-12); NEUTROPHILS # (AUTO) 4.2 X10'3 (1.8-7.7); PLATELET COUNT 211 X10'3 (140-440); RED BLOOD COUNT 3.98 X10'6 (4.70-6.10); WHITE BLOOD COUNT 7.4 X10'3 (4.5-11.0)
[2024-08-24 09:49] LABS: ALBUMIN 2.9 G/DL (3.4-5.0); ANION GAP 3 (8-16); CALCIUM 9.1 MG/DL (8.5-10.1); CHLORIDE 95 MMOL/L (99-107); CREATININE 1.47 MG/DL (0.60-1.10); GLUCOSE 249 MG/DL (70-104); POTASSIUM 3.3 MMOL/L (3.5-5.1); SODIUM 136 MMOL/L (135-145); TOTAL CARBON DIOXIDE 37.9 MMOL/L (24-32); eGFR 48 ML/MIN
[2024-08-24 09:51] LABS: INR 1.2 INR
[2024-08-24 09:58] LABS: BLOOD UREA NITROGEN 12 MG/DL (7-18); BUN/CREATININE RATIO 8.2 (10.0-20.0)
[2024-08-24 11:23] LABS: ANISOCYTOSIS 3+; PLATELET ESTIMATE NORMAL; STOMATOCYTES 1+
[2024-08-24 11:25] LABS: ELLIPTOCYTES FEW
[~2024-08-26] VITALS: Ht 170.2 cm; Wt 94.1 kg
[~2024-08-26 06:30] MED LIST changes: +APIX5TAB3 PO; -CLOP75TA34 PO; +LEVO750T68 PO; -PRED10TA23 PO; -RIVA20TA PO; +SPIR25TA5 PO
[2024-08-26] MEDS ORDERED: MIDAZolam 1mg/ml 10ml vial IV ONE (06:50)
[2024-08-26] MEDS ORDERED: amiodarone 150mg/dext, iso-os 100 ML IV ONE (06:50)
[2024-08-26] MEDS ORDERED: atropine 0.1mg/ml 10ml syringe IV ONE (06:50)
[2024-08-26] MEDS ORDERED: diphenhydrAMINE 25mg capsule PO ONE (06:50)
[2024-08-26] MEDS ORDERED: morphine 10mg/ml inj. IV ONE (06:50)
[2024-08-26] MEDS ORDERED: LORazepam 0.5 MG tablet PO ONE (08:30)
== END 2024-08-26 10:10 | disposition home or self-care (01) ==
LOC: SSTAY O 06:30
PROVIDERS: ATTEND Internal Medicine Cardiovascular Disease
DX: I48.0 Paroxysmal atrial fibrillation (principal); Z53.8 Procedure and treatment not carried out for other reasons; I25.119 Atherosclerotic heart disease of native coronary artery with unspecified angina pectoris; I11.0 Hypertensive heart disease with heart failure; E78.5 Hyperlipidemia, unspecified; J44.9 Chronic obstructive pulmonary disease, unspecified; G47.33 Obstructive sleep apnea (adult) (pediatric); I27.29 Other secondary pulmonary hypertension; I36.1 Nonrheumatic tricuspid (valve) insufficiency; I50.32 Chronic diastolic (congestive) heart failure; Z79.899 Other long term (current) drug therapy; I44.0 Atrioventricular block, first degree; I45.10 Unspecified right bundle-branch block
CPT/HCPCS: 36415; 80048; 85025; 85610; 93005; A4615; 85008

== ENCOUNTER 2025-01-17 20:42 | Emergency (ER) | payer MEDICARE, MEDICAID ==
[~2025-01-17] VITALS: Ht 170.2 cm; Wt 93.0 kg
[~2025-01-17 20:42] MED LIST changes: -BUPR-230 PO; +BUPR-724 PO
--- NOTE | 2025-01-17 21:03 | Physician Documentation ---
History of Present Illness ~ Chief Complaint: Shortness of Breath Stated Complaint: SOB Time Seen by MD: 20:54 Primary Medical Doctor: Dr. Woo ([facility])/Dr. Rondon Source: patient, EMS, EMS notes reviewed Mode of Arrival: EMS Exam Limitations: no limitations HPI Chief Complaint: Shortness of breath, dizziness Caveat: None Independent Historians: Paramedics History of Present Illness: Patient is a 64-year-old man brought in by paramedics from home. Patient has had increasing shortness a breath that began 2-3 days ago. Patient denies any cough or fever. Patient has increasing shortness of breath with exertion. Patient today is also been having these dizzy spells. He has describes these spells as feeling lightheaded and like he is going to pass out. Patient states that he has fallen 3 times but has not suffered any injuries. Patient denies any chest pain or abdominal pain. No nausea vomiting diarrhea. Patient states that he has been having these twitches in his upper extremities that started today also" Patient is normally on 3 L of oxygen at home. Patient's pulse ox for the medics was 96% on 3 L. Review of systems: All systems were reviewed and are negative except for what is indicated in the history of present illness. Past Medical History: Paroxysmal Atrial fibrillation, chronic congestive heart failure with preserved ejection fraction, COPD, obstructive sleep apnea, hypothyroidism Past Surgical History: Noncontributory Social History: Medications: Reviewed as documented Nursing Notes Allergies: Reviewed as documented in Nursing Notes Medication Reconciliation Allergies: Coded Allergies: cephalexin (Verified Allergy, Unknown, 01/17/25) tramadol (Verified Allergy, Unknown, 01/17/25) Scheduled Amiodarone HCl (Amiodarone HCl), 1 TAB PO DAILY, (Reported) Apixaban (Eliquis), 1 TAB PO Q12H Aspirin (Aspirin EC), 1 TAB PO DAILY, (Reported) Atenolol (Atenolol), 1 TAB PO BID, (Reported) Azithromycin (Zithromax), 1 TAB PO UD Benzonatate* (Benzonatate*), 3 CAP PO DAILY, (Reported) Cholecalciferol (Vitamin D3) (Vitamin D3), 1 CAP PO Q7D, (Reported) Doxepin HCl (Doxepin HCl), 3 CAP PO HS, (Reported) Furosemide (Lasix), 20 MG PO BID Isosorbide Mononitrate (Isosorbide Mononitrate Er), 1 TAB PO DAILY, (Reported) Levofloxacin (Levofloxacin), 1 TAB PO DAILY Levothyroxine Sodium (Levothyroxine Sodium), 1 TAB PO DAILY, (Reported) Losartan Potassium (Losartan Potassium), 1 TAB PO DAILY, (Reported) Melatonin (Melatonin), 1 TAB PO HS, (Reported) Multivitamin (Multi Vitamin Daily), 1 TAB PO DAILY, (Reported) [place]-3 Fatty Acids/Fish Oil ([place] 3 1,000 mg Softgel), 1 CAP PO BID, (Reported) Prednisone* (Prednisone*), 1 TAB PO Q12H Rosuvastatin Calcium* (Crestor*), 1 TAB PO DAILY, (Reported) Spironolactone (Spironolactone), 25 MG PO DAILY Terazosin HCl (Terazosin HCl), 1 CAP PO HS, (Reported) Scheduled PRN Ipratropium/Albuterol Sulfate (Duoneb 2.5-0.5 Mg/3 Ml Soln), 3 ML IH Q6H PRN for SOB or wheezing, (Reported) Morphine Sulfate (Morphine Sulfate Er), 30 MG PO BID PRN for pain, (Reported) Nitroglycerin SL* (Nitrostat SL*), 1 TAB SL Q5MIN PRN for Chest pain Q5min PRNx3-call MD, (Reported) Miscellaneous Medications Levalbuterol Hcl (Levalbuterol Hcl), 1.25 MG IH, (Reported) Tiotropium Br/Olodaterol HCl (Stiolto Respimat Inhaler (10)), (Reported) Discontinued Medications Bupropion HCl (Bupropion HCl Sr), 1 TABLET PO BID, (Reported) Discontinued Reason: patient no longer taking Omeprazole (Omeprazole), 1 CAP PO DAILY, (Reported) Discontinued Reason: Out of medication Past Medical History Past Medical History: Atrial Fibrillation, Coronary Artery Disease, High Cholesterol, Hypertension, GERD, Chronic Back Pain, Anxiety, Depression Past Surgical History: angioplasty Patient History: FH: cirrhosis FATHER Alcohol Use: Sober Drug Use: marijuana Lives with: S/O Lives In: Home Occupation: retired Review of Systems All Other Systems at this time: Reviewed and Negative ROS Patient denies any other acute symptoms other than above. All other systems are negative Physical Exam Vital Signs: RN Vital Signs have been reviewed: Yes, Temperature: 98.5, Source: Oral, Heart Rate: 88, Respiratory Rate: 18, BP: 142/80, Pulse Oximetry: 98, Weight: 93.000 Oxygen Flow Rate: 3.0 Pulse Oximetry Reflects: adequate oxygenation Physical Exam General Appearance: Mild distress, acutely and chronically ill-appearing HEENT: Normal OP, moist oral mucosa, PERRL, EOMI Neck: supple, normal ROM, trachea midline Pulmonary: Mild respiratory distress, mild tachypnea, breath sounds equal, breath sounds are very distant and clear to auscultation Cardiac: RRR, no murmur, rub or gallop, GI: nondistended, soft, nontender, normal bowel sounds, no guarding, no rebound Extremities: normal ROM, no swelling, non-tender Skin: intact, dry, warm, no rashes Neuro: AAOx3, speech is clear, no focal motor weakness Psych: normal affect, good eye contact, no apparent hallucination, normal speech Progress Results/Orders Results/Orders Orders - JODY JARAMILLO MD Chest,Single View (01/17/25 20:44) Monitor (01/17/25 20:44) Saline Lock (01/17/25 20:44) Oxygen (01/17/25 20:44) Culture Blood (01/17/25 20:44) Straight Cath For Urine Sample (01/17/25 20:44) Svn Treatment (01/17/25 20:54) Completed Orders - JODY JARAMILLO MD Chest,Single View (01/17/25 20:44) Cbc/Diff (01/17/25 20:44) PBNP (01/17/25 20:44) Electrocardiogram (01/17/25 20:44) Hs Troponin I W Calculations (01/17/25 20:44) Urinalysis, Cult If Indicated (01/17/25 20:44) Procalcitonin (01/17/25 20:44) Lacticsepsis (01/17/25 20:44) CMP (01/17/25 20:54) Methylprednisolone Sod Succ (Solumedrol (01/17/25 20:55) Ipratropium/Albuterol Nebule (Ipratrop/A (01/17/25 20:55) Medications Received in ER Medications (Trade) Dose Ordered Sig/Kayleen Route PRN Reason Start Time Stop Time Status Last Admin Dose Admin (SoluMEDROL 125mg inj) 125 mg ONCE ONCE IV 01/17/25 20:55 01/17/25 20:56 DC 01/17/25 21:07 125 MG (ipratrop/ albuterol 0.5-3(2.5) MG/3ml nebule) 3 ml ONCE ONCE NEB 01/17/25 20:55 01/17/25 20:56 DC 01/17/25 21:13 3 ML Vital Signs 01/17/25 01/17/25 01/17/25 01/17/25 20:45 20:54 20:54 20:59 Temp 98.5 98.5 Pulse 88 92 Resp 18 18 18 B/P (MAP) 142/80 142/80 (100) Pulse Ox 98 98 98 O2 Delivery Nasal Cannula* O2 Flow Rate 3.0 3.0 3.0 FiO2 N/A N/A 01/17/25 01/17/25 01/17/25 01/17/25 21:20 21:20 21:28 23:56 Temp 98.5 Pulse 93 89 93 Resp 16 18 14 B/P (MAP) 133/62 Pulse Ox 99 98 O2 Delivery Nasal Cannula* Nasal Cannula* Nasal Cannula* O2 Flow Rate 3 3 3 FiO2 32 32 32 Laboratory Tests Test 01/17/25 20:44 01/17/25 21:40 Urine Specimen Description Cln catch midstream Urine Color Yellow Urine Clarity Clear Urine pH 6.0 Urine Specific [place] 1.025 Urine Protein Negative Urine Glucose (UA) Negative Urine Ketones Negative Urine Occult Blood Negative Urine Nitrite Negative Urine Bilirubin Negative Urine Urobilinogen 0.2 Urine Leukocyte Esterase Negative Urine Culture Indicated Not ind Volume Urine Centrifuged 10 ml Urine Comment White Blood Count 8.2 Red Blood Count 3.68 L Hemoglobin 11.6 L Hematocrit 33.9 L Mean Corpuscular Volume 92.1 Mean Corpuscular Hemoglobin 31.4 H Mean Corpuscular Hemoglobin Concent 34.1 Red Cell Distribution Width 14.2 Platelet Count 162 Mean Platelet Volume 8.1 Neutrophils (%) (Auto) 64.4 Lymphocytes (%) (Auto) 22.2 Monocytes (%) (Auto) 12.3 H Eosinophils (%) (Auto) 0.8 Basophils (%) (Auto) 0.3 Neutrophils # (Auto) 5.3 Lymphocytes # (Auto) 1.8 Monocytes # (Auto) 1.0 H Eosinophils # (Auto) 0.1 Basophils # (Auto) 0.0 CBC Comment Sodium Level 141 Potassium Level 4.6 Chloride Level 103 Carbon Dioxide Level 31.7 Anion Gap 6 L Blood Urea Nitrogen 37 H Creatinine 1.58 H Estimated GFR/1.73 m2 44 BUN/Creatinine Ratio 23.4 H Glucose Level 156 H Lactic Acid Level 0.9 Calcium Level 8.8 Total Bilirubin 0.9 Aspartate Amino Transf (AST/SGOT) 13 Alanine Aminotransferase (ALT/SGPT) 25 Alkaline Phosphatase 76 Troponin I High Sensitivity 9 Pro-B-Type Natriuretic Peptide 1813 H Total Protein 6.9 Albumin 3.4 Globulin 3.5 Albumin/Globulin Ratio 1.0 L Procalcitonin < 0.05 Chemistry Comments Microbiology Date/Time Source Procedure Growth Status 01/17/25 21:40 Blood Hand Right Blood Culture - Preliminary NEGATIVE (LESS THAN 24 HOURS) Resulted Medical Decision Making Additional info obtained from: old records Findings Differential diagnosis includes but is not limited to: Cardiac dysrhythmia, acute coronary syndrome, acute COPD exacerbation, acute CHF exacerbation, acute kidney injury EKG independent interpretation: Performed at 9:51 p.m.. Normal sinus rhythm, heart rate 95, left axis deviation, right bundle-branch block, left anterior fascicular block Chest x-ray, single view, indication: Shortness a breath Independent interpretation: Lungs are clear, no pleural fluid, no infiltrates, normal mediastinum, normal cardiac silhouette. No acute cardiopulmonary process Laboratory data independent interpretation: CBC: Unremarkable, moderate anemia with a hemoglobin of 11.6 and hematocrit 33. 9 CMP: Chronic renal insufficiency with a BUN of 37 and creatinine of 1.58. This is his baseline. Pro BNP: 1813 1st troponin: 9 Procalcitonin less than 0.05 Lactic acid: 0.9 Urinalysis: Emergency department course/medical decision-making: Patient presents with acute shortness a breath and history consistent with COPD exacerbation. Chest x-ray is clear for any congestive heart failure, pneumonia or pleural fluid. Do not suspect pulmonary embolus. Patient was given a DuoNeb and IV Solu-Medrol. 11:15 p.m.: Patient re-evaluated. Patient states that he is feeling better. Patient states his breathing is back to baseline. Patient is comfortable going home. No admission criteria been identified. No medical or surgical emergency currently present and he is stable for discharge. Patient will be placed on Zithromax and prednisone for five days. Departure Time of Disposition: 23:41 Disposition: HOME / SELF CARE / HOMELESS Impression: Primary Impression: Acute exacerbation of chronic obstructive pulmonary disease (COPD) Additional Impression: Dizziness Condition: Improved Discharge Instructions: Chronic Obstructive Pulmonary Disease Exacerbation, [id number], Dizziness, [id number] Additional Instructions: FOLLOW UP WITH YOUR PRIMARY CARE DOCTOR THIS WEEK. RETURN TO THE EMERGENCY DEPARTMENT IF YOU HAVE ANY RECURRENT SHORTNESS OF BREATH OR WORSENING SYMPTOMS. Prescriptions Azithromycin (Zithromax) 250 Mg Tablet 1 TAB PO UD for 5 Days, #6 TAB 0 Refills 2 the first day followed by 1 for days 2-5 Prov: JODY JARAMILLO MD 01/17/25 Prednisone* (Prednisone*) 20 Mg Tablet 1 TAB PO Q12H for 5 Days, #10 TAB Prov: JODY JARAMILLO MD 01/17/25 Education Educated: Patient Educated regarding: diagnosis, treatment, need for follow up Signature Scribe Signature: No scribe Attestation: No scribe JODY JARAMILLO MD Jan 17, 2025 21:03
[2025-01-17] MEDS: methylPREDNISolone sod succ 125mg/2ml vial IV ONE (21:07)
--- NOTE | 2025-01-17 21:12 | RADIOLOGY REPORT ---
CHEST RADIOGRAPH Indication: CP Technique: Single frontal view of the chest was obtained COMPARISON: DI CHEST,SINGLE VIEW on DOS: 08/08/24, DI CHEST,SINGLE VIEW on DOS: 08/07/24, DI CHEST,SINGLE VIEW on DOS: 07/05/24, CHEST,SINGLE VIEW on DOS: 02/15/22 FINDINGS: Lines and Tubes: None Lungs: Clear Pleura: No effusion. No pneumothorax. Cardiomediastinal contours: Unremarkable Bones: Unremarkable IMPRESSION: 1. No acute disease.
[2025-01-17] MEDS: ipratropium/albuterol 3ml nebule NEB ONE (21:13)
[2025-01-17 21:20] VITALS: PULSE 93; RESP 16; O2SAT 99
[2025-01-17 21:28] VITALS: PULSE 89; RESP 18; O2SAT 98
[2025-01-17 21:51] LABS: BASOPHILS % (AUTO) 0.3 % (0-1); EOSINOPHILS # (AUTO) 0.1 X10'3 (0-0.9); EOSINOPHILS % (AUTO) 0.8 % (0-6); HEMATOCRIT 33.9 % (42.0-52.0); HEMOGLOBIN 11.6 g/dl (14.0-17.9); LYMPHOCYTES # (AUTO) 1.8 X10'3 (1.1-4.8); LYMPHOCYTES % (AUTO) 22.2 % (21-51); MEAN CORPUSCULAR HEMOGLOBIN 31.4 PG (27.0-31.0); MEAN CORPUSCULAR HGB CONC 34.1 g/dL (33.0-36.5); MEAN CORPUSCULAR VOLUME 92.1 FL (78-98); MEAN PLATELET VOLUME 8.1 FL (7.4-10.4); MONOCYTES % (AUTO) 12.3 % (2-12); NEUTROPHILS # (AUTO) 5.3 X10'3 (1.8-7.7); NEUTROPHILS % (AUTO) 64.4 % (42-75); PLATELET COUNT 162 X10'3 (140-440); RED BLOOD COUNT 3.68 X10'6 (4.70-6.10); RED CELL DISTRIBUTION WIDTH 14.2 % (11.5-14.5); WHITE BLOOD COUNT 8.2 X10'3 (4.5-11.0)
[2025-01-17 22:04] LABS: ALANINE AMINOTRANSFERASE 25 U/L (12-78); ALBUMIN 3.4 G/DL (3.4-5.0); ALKALINE PHOSPHATASE 76 IU/L (46-116); ANION GAP 6 (8-16); ASPARTATE AMINO TRANSFERASE 13 U/L (10-37); BILIRUBIN,TOTAL 0.9 MG/DL (0.1-1.0); BLOOD UREA NITROGEN 37 MG/DL (7-18); BUN/CREATININE RATIO 23.4 (10.0-20.0); CALCIUM 8.8 MG/DL (8.5-10.1); CHLORIDE 103 MMOL/L (99-107); CREATININE 1.58 MG/DL (0.60-1.10); GLUCOSE 156 MG/DL (70-104); POTASSIUM 4.6 MMOL/L (3.5-5.1); SODIUM 141 MMOL/L (135-145); TOTAL CARBON DIOXIDE 31.7 MMOL/L (24-32); TOTAL PROTEIN 6.9 G/DL (6.4-8.2); eCRCL 44 ML/MIN; eGFR 44 ML/MIN
[2025-01-17 22:12] LABS: PRO BRAIN NATRIURETIC PEPTIDE 1813 PG/ML (0-125)
--- NOTE | 2025-01-17 22:40 | ELECTROCARDIOGRAPH REPORT ---
[facility] Test Date: 2025-01-17 Test Time: 20:51:47 Pat Name: SHERLEY MEDRANO Department: [facility]- Patient ID: [facility]-[id number] Room: Gender: M Information Technology Assistant: : 1960 Requested By: JODY JARAMILLO Order Number: [id number] Reading MD: Measurements Intervals [place] Rate: 95 P: 98 AL: 132 QRS: -80 QRSD: 170 T: 56 QT: 399 QTc: 502 Interpretive Statements Sinus rhythm Consider right atrial enlargement RBBB and LAFB Please click the below link to view image of tracing.
[2025-01-17 23:10] LABS: BILIRUBIN,URINE NEGATIVE (Neg); CLARITY,URINE CLEAR (Clear); COLOR,URINE YELLOW (Yellow); GLUCOSE, URINE NEGATIVE (Neg); KETONES,URINE NEGATIVE (Neg); LEUKOCYTE ESTERASE ,URINE NEGATIVE (Neg); NITRITES, URINE NEGATIVE (Neg); OCCULT BLOOD,URINE NEGATIVE (Neg); PROTEIN,URINE NEGATIVE (Neg); UROBILINOGEN,URINE 0.2 E.U/dL (0.2-1.0)
[2025-01-17 23:15] LABS: UA COLLECTION TYPE CLN CATCH MIDSTREAM
[2025-01-17] MEDS ORDERED: PRED20TA PO (23:45)
[2025-01-17] MEDS ORDERED: AZIT250T PO (23:45)
[2025-01-17 23:56] VITALS: BP 133/62; PULSE 93; RESP 14; TEMP 98.5
== END 2025-01-17 23:55 | disposition home or self-care (01) ==
LOC: ER 20:42
DX: J44.1 Chronic obstructive pulmonary disease with (acute) exacerbation (principal); R42 Dizziness and giddiness; E03.9 Hypothyroidism, unspecified; E78.00 Pure hypercholesterolemia, unspecified; I11.0 Hypertensive heart disease with heart failure; I50.32 Chronic diastolic (congestive) heart failure; F41.9 Anxiety disorder, unspecified; F32.A Depression, unspecified; K21.9 Gastro-esophageal reflux disease without esophagitis; I25.10 Atherosclerotic heart disease of native coronary artery without angina pectoris; I48.91 Unspecified atrial fibrillation; F12.90 Cannabis use, unspecified, uncomplicated; F10.90 Alcohol use, unspecified, uncomplicated; Z88.1 Allergy status to other antibiotic agents; Z88.5 Allergy status to narcotic agent; Z88.8 Allergy status to other drugs, medicaments and biological substances; Z79.82 Long term (current) use of aspirin; Y90.9 Presence of alcohol in blood, level not specified
CPT/HCPCS: 36415; 71045; 80053; 81003; 83605; 83880; 84145; 84484; 85025; 87040; 93005; 94640; 96374; 99285; J2919; 94760